=== PATIENT | female | born 1955 | race Native Hawaiian/Other Pacific Islander ===

== ENCOUNTER → 2019-04-23 | Outpatient (CLI) | payer MEDICARE, BC ==
[~2019-04-23] MED LIST: DENOSUMAB 60 MG/ML 1 ML SYRINGE SQ ONE
[2019-04-23 07:17] VITALS: BP 178/96; PULSE 68; RESP 16; TEMP 97.4
== END | disposition home or self-care (01) ==
LOC: PROCWHC3 06:59
PROVIDERS: ATTEND Family Medicine
DX: M81.0 Age-related osteoporosis without current pathological fracture (principal)
CPT/HCPCS: 96372; J0897

== ENCOUNTER → 2019-11-02 | Outpatient (CLI) | payer MEDICARE, BC ==
[~2019-11-02] MED LIST changes: +DENOSUMAB 60 MG/ML 1 ML SYRINGE SQ NR
[2019-11-02 08:05] VITALS: BP 184/97; PULSE 67; RESP 18; TEMP 97.9
== END | disposition home or self-care (01) ==
LOC: PROCWHC3 07:56
PROVIDERS: ATTEND Family Medicine
DX: M81.0 Age-related osteoporosis without current pathological fracture (principal)
CPT/HCPCS: 96365; J0897

== ENCOUNTER → 2021-11-09 | Outpatient (CLI) | payer MEDICARE ==
[~2021-11-09] MED LIST changes: -DENOSUMAB 60 MG/ML 1 ML SYRINGE SQ ONE
[2021-11-09 08:25] VITALS: BP 158/90; PULSE 98; RESP 16; TEMP 98.1
== END ==
LOC: PROCWHC3 08:16
PROVIDERS: ATTEND Family Medicine
DX: M81.0 Age-related osteoporosis without current pathological fracture (principal); Z88.6 Allergy status to analgesic agent; Z88.5 Allergy status to narcotic agent; Z88.0 Allergy status to penicillin; F17.200 Nicotine dependence, unspecified, uncomplicated
CPT/HCPCS: 96372; J0897

== ENCOUNTER → 2022-11-17 | Outpatient (CLI) | payer MEDICARE ==
[~2022-11-17] MED LIST changes: -DENOSUMAB 60 MG/ML 1 ML SYRINGE SQ NR; +DENOSUMAB 60 MG/ML 1 ML SYRINGE SQ ONE
[2022-11-17 11:37] VITALS: BP 174/84; PULSE 89; RESP 16; TEMP 98.9
== END ==
LOC: PROCWHC3 11:26
PROVIDERS: ATTEND Family Medicine
DX: M81.0 Age-related osteoporosis without current pathological fracture (principal)
CPT/HCPCS: 96372; J0897

== ENCOUNTER → 2023-09-01 | Outpatient (CLI) | payer MEDICARE ==
[2023-09-01 12:05] VITALS: BP 139/83; PULSE 60; RESP 14; TEMP 98.2
[2023-09-01] MEDS: DENOSUMAB 60 MG/ML 1 ML SYRINGE SQ NR (12:07)
== END ==
LOC: PROCWHC3 11:41
PROVIDERS: ATTEND Family Medicine
DX: M81.0 Age-related osteoporosis without current pathological fracture (principal)
CPT/HCPCS: 96372; J0897

== ENCOUNTER 2024-06-08 09:20 | Outpatient (CLI) | payer MEDICARE ==
[2024-06-08] MEDS: DENOSUMAB 60 MG/ML 1 ML SYRINGE SQ ONE (09:35)
[2024-06-08 09:41] VITALS: BP 198/98; PULSE 57; RESP 16; TEMP 98.2
== END 2024-06-08 10:13 | disposition home or self-care (01) ==
LOC: PROCWHC3 09:20
PROVIDERS: ATTEND Family Medicine
DX: M81.0 Age-related osteoporosis without current pathological fracture (principal); M15.9 Polyosteoarthritis, unspecified
CPT/HCPCS: 96372; J0897